=== PATIENT | male | born 1940 | race Caucasian/White ===

== ENCOUNTER 2018-10-08 06:29 | Day surgery (SDC) | payer OTHER ==
[~2018-10-08 06:29] MED LIST: CARAFATE SU1 G/10 ML PO; GLUCOTROL10 MG; PROTONIX40 MG PO
== END 2018-10-08 11:35 | disposition home or self-care (01) ==
LOC: AMB-ENDOS 06:29 → EDBD 06:29 → AMB-ENDOS 11:15 → CIR.AMB 11:15 → AMB-ENDOS 11:35
DX: D12.4 Benign neoplasm of descending colon (principal)